=== PATIENT | male | born 1970 | race Two or more races ===

== ENCOUNTER 2020-01-16 01:00 | Emergency (ER) | payer OTHER ==
[2020-01-16 02:13] LABS: ABSOLUTE EOSINOPHILS # (AUTO) 0.4 10^3/uL (0.0-0.6); ABSOLUTE LYMPHOCYTES (AUTO) 2.3 10^3/uL (0.5-4.7); ABSOLUTE MONOCYTES (AUTO) 0.6 10^3/uL (0.1-1.4); ABSOLUTE NEUT (AUTO) 3.4 10^3/uL (1.7-8.2); BASOPHILS % (AUTO) 0.5 % (0-2); EOSINOPHILS % (AUTO) 6.4 % (0-6); HEMATOCRIT 38.1 % (37.9-51.0); HEMOGLOBIN 13.5 g/dL (13.5-17.0); LYMPHOCYTES % (AUTO) 34.3 % (13-45); MEAN CORPUSCULAR HEMOGLOBIN 33.4 pg (27.0-33.4); MEAN CORPUSCULAR HGB CONC 35.4 g/dL (32.0-36.0); MEAN CORPUSCULAR VOLUME 94 fl (80-97); MONOCYTES % (AUTO) 8.8 % (3-13); PLATELET COUNT 282 10^3/uL (150-450); RED BLOOD COUNT 4.04 10^6/uL (4.35-5.55); RED CELL DISTRIBUTION WIDTH 12.9 % (11.5-14.0); TOTAL CELLS COUNTED % (AUTO) 100 %; WHITE BLOOD COUNT 6.8 10^3/uL (4.0-10.5)
[2020-01-16 02:32] LABS: BLOOD UREA NITROGEN 22 mg/dL (7-20); CALCIUM 8.8 mg/dL (8.4-10.2); GLUCOSE 100 mg/dL (75-110)
[2020-01-16 02:33] LABS: ALBUMIN 4.2 g/dL (3.5-5.0); ALKALINE PHOSPHATASE 49 U/L (38-126); ANION GAP 7 (5-19); ASPARTATE AMINO TRANSFERASE 30 U/L (17-59); BILIRUBIN,TOTAL 0.4 mg/dL (0.2-1.3); CARBON DIOXIDE 25 mmol/L (22-30); CHLORIDE 104 mmol/L (98-107); CREATINE KINASE 147 U/L (55-170); POTASSIUM 3.9 mmol/L (3.6-5.0); TOTAL PROTEIN 7.3 g/dL (6.3-8.2)
[2020-01-16 02:42] LABS: CREATINE KINASE MB 0.88 ng/mL (<4.55)
--- NOTE | 2020-01-16 02:54 | RADIOLOGY REPORT (SQ) ---
EXAM DESCRIPTION: XR CHEST 2 VIEWS COMPLETED DATE/TME: 01/16/2020 00:00 CLINICAL HISTORY: 49 years, Male, chest pain COMPARISON: None. NUMBER OF VIEWS: TECHNIQUE: LIMITATIONS: None. FINDINGS: No evidence of pulmonary infiltrate or pleural effusion. The heart and mediastinum are unremarkable. Pulmonary vascularity appears normal. IMPRESSION: No acute finding. copyright 2010 [employer]- All Rights Reserved
[2020-01-16 03:08] LABS: TROPONIN I < 0.012 ng/mL
--- NOTE | 2020-01-16 03:50 | ER Document Report ---
Entered by ARTIS PALMA SCRIBE 01/16/20 0244 Acting as scribe for:MAYRA ZIEGLER DO ED General - General Chief Complaint: Chest Pain > 30 Stated Complaint: CHEST PAINS Time Seen by Provider: 01/16/20 02:35 Primary Care Provider: DINORA BURCIAGA MD [ACTIVE STAFF] - Follow up as needed ERYN SPICER MD [Primary Care Provider] - Follow up as needed Mode of Arrival: Ambulatory Information source: Patient Notes: This 49 year old male patient with a history of HTN, HLD, and GERD presents to the ED today with complaints of sharp, left-sided chest pain for the past x3 days. Patient states that he woke up around 2200 with palpitations and cold sweats. Patient reports that he has been having palpitations that "feel like a strong heart beat" when he has been exercising the last x3 days, with the first episode in the pool. Patient notes that he took x2 baby ASA prior to arrival. Patient states that he had a stress test in 2016 in [place] that was normal. Patient denies dizziness, blurred vision, shortness of breath, nausea, vomiting, leg pain, or leg swelling. TRAVEL OUTSIDE OF THE [place] IN LAST 30 DAYS: No - HPI Severity: Mild Associated symptoms: None Exacerbated by: Denies Relieved by: Denies - Related Data Allergies/Adverse Reactions: Penicillins Allergy (Verified 01/16/20 01:23) Past Medical History - General Information source: Patient - Social History Smoking Status: Never Smoker Cigarette use (# per day): No Chew tobacco use (# tins/day): No Smoking Education Provided: No Frequency of alcohol use: Occasional Drug Abuse: None Lives with: Spouse/Significant other Family History: Reviewed & Not Pertinent, DM, Hypertension, Malignancy Patient has suicidal ideation: No Patient has homicidal ideation: No - Past Medical History Cardiac Medical History: Reports: Hx Hypercholesterolemia, Hx Hypertension GI Medical History: Reports: Hx Gastroesophageal Reflux Disease Review of Systems - Review of Systems Constitutional: See HPI, Diaphoresis EENT: See HPI. denies: Blurred vision Cardiovascular: See HPI, Chest pain. denies: Dizziness Respiratory: See HPI. denies: Short of breath Gastrointestinal: See HPI. denies: Nausea, Vomiting Genitourinary: No symptoms reported Musculoskeletal: See HPI. denies: Leg swelling, Other - Leg pain Skin: No symptoms reported Hematologic/Lymphatic: No symptoms reported Neurological/Psychological: No symptoms reported -: Yes All other systems reviewed and negative Physical Exam - Vital signs Vitals: Temp Pulse Resp BP Pulse Ox 97.5 F 61 18 119/90 H 98 01/16/20 01:20 01/16/20 01:20 01/16/20 01:20 01/16/20 01:20 01/16/20 01:20 Interpretation: Normal - General General appearance: Appears well, Alert In distress: None - HEENT Head: Normocephalic, Atraumatic Eyes: Normal Pupils: PERRL - Respiratory Respiratory status: No respiratory distress Chest status: Tender - Chest wall tenderness with palpation Breath sounds: Normal Chest palpation: Normal - Cardiovascular Rhythm: Regular Heart sounds: Normal auscultation Murmur: No - Abdominal Inspection: Normal Distension: No distension Bowel sounds: Normal Tenderness: Nontender - Abdomen soft Organomegaly: No organomegaly - Back Back: Normal, Nontender - Extremities General upper extremity: Normal inspection General lower extremity: Normal inspection - Neurological Neuro grossly intact: Yes - Psychological Associated symptoms: Normal affect, Normal mood - Skin Skin Temperature: Warm Skin Moisture: Dry Skin Color: Normal Course - Re-evaluation Re-evalutation: 01/16/20 05:50 MDM Fit well appearing male here with chest pain that certainly seems noncardiac. He is safe for follow up and reasonable. Discussed follow up and he expressed understnaidng. - Vital Signs Vital signs: Temp Pulse Resp BP Pulse Ox 97.5 F 61 13 107/77 96 01/16/20 01:20 01/16/20 01:20 01/16/20 05:00 01/16/20 02:03 01/16/20 05:00 - Laboratory Result Diagrams: 01/16/20 02:00 01/16/20 02:00 Laboratory results interpreted by me: 01/16/20 01/16/20 02:00 02:00 RBC 4.04 L Eos % (Auto) 6.4 H Sodium 136.1 L BUN 22 H - Diagnostic Test Radiology reviewed: Image reviewed, Reports reviewed - EKG Interpretation by Me EKG shows normal: Sinus rhythm Rate: Normal Rhythm: NSR - NSR Left axis 62 Repolarization abnormality. Discharge - Discharge Clinical Impression: Chest pain Qualifiers: Chest pain type: unspecified Qualified Code(s): R07.9 - Chest pain, unspecified Condition: Good Disposition: HOME, SELF-CARE Instructions: Chest Wall Pain ([facility]), Chest Pain of Unclear Cause ([facility]) Additional Instructions: Call Dr. Burciaga for follow up. Call today. No hard training as discussed until after follow up. Please return here for any problems or any concerns. Take 2 baby aspirin daily. Referrals: ERYN SPICER MD [Primary Care Provider] - Follow up as needed DINORA BURCIAGA MD [ACTIVE STAFF] - Follow up as needed I personally performed the services described in the documentation, reviewed and edited the documentation which was dictated to the scribe in my presence, and it accurately records my words and actions.
[2020-01-16 06:24] VITALS: BP 142/86
--- NOTE | 2020-01-16 11:44 | EKG REPORT ---
SEVERITY:- ABNORMAL ECG - SINUS RHYTHM INCOMPLETE RBBB AND LAFB : Confirmed by: Yousuf Carroll 16-Jan-2020 11:43:20
== END 2020-01-16 06:24 | disposition home or self-care (01) ==
LOC: ER 01:00
DX: R07.9 Chest pain, unspecified (principal); R00.2 Palpitations; R61 Generalized hyperhidrosis; I10 Essential (primary) hypertension; Z88.0 Allergy status to penicillin
CPT/HCPCS: 36415; 71046; 80053; 82550; 82553; 83690; 84484; 85025; 85379; 93005; 93010; 99285